=== PATIENT | male | born 1995 | race Caucasian/White ===

== ENCOUNTER 2020-09-24 10:18 | Emergency (ER) | payer OTHER ==
[2020-09-24] MEDS ORDERED: FOLIC ACID INJ 1 MG, THIAMINE INJ 100 MG, MAGNESIUM SULFATE 2 GM, MULTIVITAMIN 10 ML in... IV STA ×5 (10:50)
[2020-09-24] MEDS ORDERED: LORazepam 2 MG/ML VIAL IVP STA (10:50)
--- NOTE | 2020-09-24 10:52 | ED Physician Documentation ---
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 He called his boss at work and was told to seek some sugar and he went to the vending machine had a really difficult time getting his card to work in the machine he had some beef jerky and this did not seem to resolve his symptoms. I discussed the patient's alcohol use with him he states that he usually drinks about 4 beers a day and on the weekends he may double that or even more and he believes that he did not drink as much last night as he normally does. He is quite shaky this morning and he has not experienced alcohol withdrawal to his knowledge previously.He has been measuring his blood pressure regularly it has been elevated since this summer and today had some high numbers. Review of Systems Constitutional: denies: Fever Eyes: denies: Decreased vision Ears: denies: Ear pain Nose: denies: Congestion Throat: denies: Sore throat Cardiac: denies: Chest pain / pressure, Palpitations Respiratory: denies: Dyspnea, Cough GI: denies: Abdominal Pain, Nausea, Vomiting : denies: Dysuria Skin: denies: Rash Musculoskeletal: denies: Neck pain, Back pain, Extremity pain Neurologic: reports: Confused, Other (shaky with difficult time concentrating.). denies: Generalized weakness, Focal weakness, Numbness Psychiatric: denies: Depressed, Hallucinations, Anxiety PD PAST MEDICAL HISTORY - Present Medications Home Medications: Ambulatory Orders Medication Instructions Recorded Confirmed chlordiazePOXIDE [Librium] 25 mg PO Q6H PRN #15 capsule 09/24/20 - Allergies Allergies/Adverse Reactions: Allergies Allergy/AdvReac Type Severity Reaction Status Date / Time No Known Drug Allergies Allergy Verified 09/24/20 10:26 PD ED PE NORMAL - Vitals Vital signs reviewed: Yes (tachy and hypertensive ) - General General: Alert and oriented X 3, Well developed/nourished, Other (shaking ) - HEENT HEENT: Atraumatic, PERRL, EOMI - Neck Neck: Supple, no meningeal sign - Cardiac Cardiac: No murmur, Other (tachy to 110) - Respiratory Respiratory: No respiratory distress - Abdomen Abdomen: Soft, Non tender - Back Back: No CVA TTP, No spinal TTP - Derm Derm: Normal color, Warm and dry, No rash - Extremities Extremities: No deformity, No edema - Neuro Neuro: Alert and oriented X 3, manager information 2-12 intact, No motor deficit, No sensory deficit, Normal speech Eye Opening: Spontaneous Motor: Obeys Commands Verbal: Oriented GCS Score: 15 - Psych Psych: Normal mood, Normal affect Results - Vitals Vitals: Vital Signs - 24 hr 09/24/20 09/24/20 09/24/20 10:22 10:46 11:16 Temperature 36.8 C Heart Rate 111 H 112 H 106 H Respiratory 20 18 15 Rate Blood Pressure 179/112 H 155/115 H 141/105 H O2 Saturation 99 98 97 09/24/20 09/24/20 09/24/20 11:52 12:35 12:50 Temperature 37.1 C Heart Rate 101 H 93 93 Respiratory 18 18 18 Rate Blood Pressure 140/92 H 128/81 H 137/102 H O2 Saturation 100 100 100 Oxygen O2 Source Room air - Labs Labs: Laboratory Tests 09/24/20 09/24/20 09/24/20 10:35 11:00 11:00 WBC 8.2 RBC 5.30 Hgb 16.8 Hct 47.2 MCV 89.1 MCH 31.7 H MCHC 35.6 RDW 12.1 Plt Count 189 MPV 10.1 Neut # (Auto) 6.4 Lymph # (Auto) 1.3 L [place] # (Auto) 0.5 Eos # (Auto) 0.0 Baso # (Auto) 0.0 Absolute Nucleated RBC 0.00 Nucleated RBC % 0.0 Sodium 138 Potassium 4.0 Chloride 101 Carbon Dioxide 25 Anion Gap 12.0 BUN 11 Creatinine 1.2 Estimated GFR (MDRD) 74 L Glucose 106 H POC Whole Bld Glucose 115 H Calcium 9.6 Total Bilirubin 0.7 AST 48 H ALT 62 H Alkaline Phosphatase 65 Total Protein 7.7 Albumin 4.7 Globulin 3.0 Albumin/Globulin Ratio 1.6 Lipase 30 Ethyl Alcohol < 5.0 PD MEDICAL DECISION MAKING - ED course Complexity details: reviewed results, re-evaluated patient, considered differential, d/w patient ED course: 24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 He is administered a banana bag and ativan with improvement. I have discussed with the patient the usual time course and natural history of alcohol withdrawal and the need for a temporizing medication and its use and effectiveness.He is prescribed a Librium taper and he is given a note for 3 days for work. Departure - Departure Disposition: 01 Home, Self Care Clinical Impression: Alcohol withdrawal Qualifiers: Complication of substance-induced condition: uncomplicated Qualified Code(s): F10.230 - Alcohol dependence with withdrawal, uncomplicated Condition: Stable Instructions: ED Withdrawal Alcohol Follow-Up: Asia Nieves MD [Primary Care Provider] - Prescriptions: chlordiazePOXIDE [Librium] 25 mg PO Q6H PRN #15 capsule PRN Reason: alcohol withdrawal symptoms Forms: Activity restrictions Discharge Date/Time: 09/24/20 13:05
[2020-09-24 11:21] LABS: BASOPHILS % (AUTO) 0.5 %; EOSINOPHILS % (AUTO) 0.4 %; HGB - HEMOGLOBIN 16.8 g/dL (14.0-18.0); LYMPHOCYTES # (AUTO) 1.3 10^3/uL (1.5-3.5); LYMPHOCYTES % (AUTO) 15.8 %; MEAN CORPUSCULAR HEMOGLOBIN 31.7 pg (27.0-31.0); MEAN CORPUSCULAR HGB CONC 35.6 g/dL (32.0-36.0); MEAN CORPUSCULAR VOLUME 89.1 fL (80.0-94.0); MEAN PLATELET VOLUME 10.1 fL (7.4-11.4); MONOCYTES # (AUTO) 0.5 10^3/uL (0.0-1.0); MONOCYTES % (AUTO) 5.6 %; NEUTROPHILS # (AUTO) 6.4 10^3/uL (1.5-6.6); NEUTROPHILS % (AUTO) 77.2 %; PLT - PLATELET COUNT 189 10^3/uL (130-450); RED CELL DISTRIBUTION WIDTH 12.1 % (12.0-15.0); WHITE BLOOD COUNT 8.2 x10^3/uL (4.8-10.8)
[2020-09-24 11:33] LABS: ALBUMIN 4.7 g/dL (3.2-5.5); ALBUMIN/GLOBULIN RATIO 1.6 (1.0-2.2); ALKALINE PHOSPHATASE 65 IU/L (42-121); ALT ALANINE AMINOTRANSFERASE 62 IU/L (10-60); AST ASPARTATE AMINOTRANSFERASE 48 IU/L (10-42); BILIRUBIN,TOTAL 0.7 mg/dL (0.2-1.0); BUN - BLOOD UREA NITROGEN 11 mg/dL (6-20); CALCIUM 9.6 mg/dL (8.5-10.3); CARBON DIOXIDE - CO2 25 mmol/L (21-32); CHLORIDE 101 mmol/L (101-111); CREATININE 1.2 mg/dL (0.6-1.2); GLUCOSE 106 mg/dL (70-100); LIPASE 30 U/L (22-51); SODIUM 138 mmol/L (135-145); TOTAL PROTEIN 7.7 g/dL (6.7-8.2)
[2020-09-24 12:51] VITALS: BP 137/102
== END 2020-09-24 13:05 | disposition home or self-care (01) ==
LOC: ED 10:18
DX: F10.230 Alcohol dependence with withdrawal, uncomplicated (principal); R03.0 Elevated blood-pressure reading, without diagnosis of hypertension; R00.0 Tachycardia, unspecified
CPT/HCPCS: 36415; 80053; 80320; 83690; 85025; 96365; 96375; 99284; J2060; J3411

== ENCOUNTER 2020-12-31 18:20 | Emergency (ER) | payer OTHER ==
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
[2020-12-31 21:44] VITALS: BP 130/80
== END 2020-12-31 21:43 | disposition home or self-care (01) ==
LOC: ED 18:20
DX: S93.401A Sprain of unspecified ligament of right ankle, initial encounter (principal); V28.4XXA Motorcycle driver injured in noncollision transport accident in traffic accident, initial encounter; Y93.I9 Activity, other involving external motion
CPT/HCPCS: 99283